=== PATIENT | female | born 1970 | race Caucasian/White ===

== ENCOUNTER 2016-06-13 18:26 | Emergency (ER) | payer OTHER ==
[~2016-06-13] VITALS: Ht 162.6 cm; Wt 43.1 kg
[~2016-06-13 18:26] MED LIST: AMPHETAMINE SAL30 MG PO; DIAZEPAM10 MG PO; MELATONIN3 MG PO; NAPROSYN500 MG PO; NEURONTIN300 MG PO; NEURONTIN600 MG PO; OXYCODONE HCL30 MG PO; PERCOCET 5-3251 EACH PO; PERCOCET 5/31 TABLET PO; PROZAC20 MG PO; SOMA350 MG PO; VALIUM5 MG PO
[2016-06-13 19:25] LABS: HEMATOCRIT 40.4 % (36.0-46.0); MCH 31.2 PG (29.0-34.0); MCHC 34.9 G/DL (30.0-36.0); MCV 89.4 FL (83-99); MEAN PLAT.VOLUME 10.4 uM^3 (9.5-12.4); PLATELET COUNT 205 K/uL (156-360); RBC DIS.WIDTH-CV 11.9 % (11.8-14.6); RBC DIS.WIDTH-SD 38.1 % (39-53); RED BLOOD COUNT 4.52 M/uL (3.80-5.20); WHITE BLOOD COUNT 7.7 K/uL (4.1-10.2)
[2016-06-13 19:41] LABS: CHLORIDE 103 mEq/L (99-109); POTASSIUM 4.4 mEq/L (3.7-5.4); SODIUM 137 mEq/L (136-147)
[2016-06-13 19:43] LABS: GLUCOSE 87 mg/dL (70-99)
[2016-06-13 19:44] LABS: ANION GAP 8 MEQ/L (2-14)
[2016-06-13 19:47] LABS: GFR ESTIMATE (CALCULATED) > 59 mL/min/; TROP-I INTERPRETATION NEGATIVE; TROPONIN-I < 0.01 ng/mL (0.0-0.30)
[2016-06-13 19:48] LABS: UREA NITROGEN (BUN) 9 mg/dL (9-23)
[2016-06-13 20:08] LABS: TOTAL BILIRUBIN 1.6 mg/dL (0.0-1.0)
[2016-06-13 20:09] LABS: ALKALINE PHOSPHATASE 71 IU/L (3-129)
[2016-06-13 20:12] LABS: DIRECT BILIRUBIN 0.5 mg/dL (0.0-0.3)
[2016-06-13 21:02] LABS: INFLUENZA A VIRAL ANTIGEN NEGATIVE; INFLUENZA B VIRAL ANTIGEN NEGATIVE
[2016-06-13] MEDS ORDERED: ZOFRAN ODT4 MG PO (21:56)
[2016-06-13 22:10] VITALS: BP 100/59
== END 2016-06-13 22:48 | disposition home or self-care (01) ==
LOC: EME 18:26
PROVIDERS: Physician Assistant
DX: R11.2 Nausea with vomiting, unspecified (principal); B34.9 Viral infection, unspecified; R06.02 Shortness of breath; R07.9 Chest pain, unspecified; R42 Dizziness and giddiness; F17.200 Nicotine dependence, unspecified, uncomplicated; G89.29 Other chronic pain; Z79.891 Long term (current) use of opiate analgesic; Z86.14 Personal history of Methicillin resistant Staphylococcus aureus infection
CPT/HCPCS: 71020; 80048; 80076; 84439; 84443; 84481; 84484; 85027; 87502; 93005; 99281; 99284; J7030

== ENCOUNTER 2016-11-02 15:35 | Emergency (ER) | payer OTHER ==
[~2016-11-02] VITALS: Ht 162.6 cm; Wt 48.6 kg
[~2016-11-02 15:35] MED LIST changes: +ZOFRAN ODT4 MG PO
[2016-11-02] MEDS ORDERED: PEN-VEE K,VEET500 MG PO (17:01)
[2016-11-02] MEDS ORDERED: PERIDEX1 ML MM (17:01)
[2016-11-02 17:21] VITALS: BP 102/55
== END 2016-11-02 17:25 | disposition home or self-care (01) ==
LOC: EME 15:35
DX: K02.9 Dental caries, unspecified (principal); K08.89 Other specified disorders of teeth and supporting structures; F17.210 Nicotine dependence, cigarettes, uncomplicated; Z96.641 Presence of right artificial hip joint; Z98.1 Arthrodesis status
CPT/HCPCS: 99281; 99283